=== PATIENT | female | born 1995 | race Caucasian/White ===

== ENCOUNTER 2019-10-22 18:48 | Inpatient (IN) | payer MEDICAID ==
[2019-10-22] MEDS ORDERED: Sodium Chloride 0.9% 10 ML Syringe FLUSH PRN (19:39)
[2019-10-22] MEDS ORDERED: fentaNYL 100 MCG/2 ML SDV IVPUSH PRN (19:39)
[2019-10-22] MEDS ORDERED: Ondansetron 4 MG/2 ML SDV IV PRN (19:39)
--- NOTE | 2019-10-22 19:59 | PCM.LDHP ---
L&D History of Present Illness - General Date of Service: 10/22/19 Admit Problem/Dx: Patient Status Order with Admit Dx/Problem 10/22/19 19:39 Patient Status [ADT] Routine Admission Diagnosis/Problem Admission Diagnosis/Problem H&P Review of Systems - Review of Systems: Review Of Systems: See Below General: Reports: No Symptoms HEENT: Reports: No Symptoms Pulmonary: Reports: No Symptoms Cardiovascular: Reports: No Symptoms Gastrointestinal: Reports: No Symptoms Genitourinary: Reports: No Symptoms Musculoskeletal: Reports: No Symptoms Skin: Reports: No Symptoms Psychiatric: Reports: No Symptoms Neurological: Reports: No Symptoms Hematologic/Lymphatic: Reports: No Symptoms Immunologic: Reports: No Symptoms L&D Exam - Exam Exam: See Below - OB Specific Contraction Intensity: Moderate Movement: Active Heart Tones: Present Heart Rate (FHR) Variability: Moderate (6-25 bmp) Presentation: Vertex - Milan Score Milan Score Cervix Position: Anterior Milan Score Consistency: Soft Milan Score Effacement: >80% Milan Score Dilation: 1-2 cm Milan Score 's Station: -1 ,0 Milan Score Total: 10 - Exam General: Alert, Oriented, Cooperative HEENT: PERRLA, Conjunctiva Clear, EACs Clear, EOMI, Hearing Intact, Mucosa Moist & Levasy, Nares Patent, Normal Nasal Septum, Posterior Pharynx Clear, TMs Clear Neck: Supple, Trachea Midline Lungs: Clear to Auscultation, Normal Respiratory Effort Cardiovascular: Regular Rate, Regular Rhythm GI/Abdominal Exam: Normal Bowel Sounds, Soft, Non-Tender, No Organomegaly, No Distention, No Abnormal Bruit, No Mass, Pelvis Stable Rectal Exam: Normal Exam, Normal Rectal Tone Genitourinary: Normal external exam, Normal bimanual exam, Normal speculum exam , Cervical dilitation Back Exam: Normal Inspection, Full Range of Motion Extremities: Normal Inspection, Normal Range of Motion, Non-Tender, No Pedal Edema, Normal Capillary Refill Skin: Warm, Dry, Intact Neurological: Cranial Nerves Intact, Reflexes Equal Bilateral Psychiatric: Alert, Normal Affect, Normal Mood - Patient Data Lab Results Last 24 hrs: Laboratory Results - last 24 hr 10/22/19 10/22/19 Range/Units 18:58 18:59 Membrane Rupture Positive H (NEGATIVE) Urine Opiates Screen Negative (NEGATIVE) Ur Oxycodone Screen Negative (NEGATIVE) Urine Methadone Screen Negative (NEGATIVE) Ur Propoxyphene Screen Negative (NEGATIVE) Ur Barbiturates Screen Negative (NEGATIVE) Ur Tricyclics Screen Negative (NEGATIVE) Ur Phencyclidine Scrn Negative (NEGATIVE) Ur Amphetamine Screen Negative (NEGATIVE) U Methamphetamines Scrn Negative (NEGATIVE) Urine MDMA Screen Negative (NEGATIVE) U Benzodiazepines Scrn Negative (NEGATIVE) U Cocaine Metab Screen Negative (NEGATIVE) U Marijuana (THC) Screen Negative (NEGATIVE) - Problem List (1) SNOMED Code(s): 65032330 ICD Code: Z34.90 - ENCNTR FOR SUPRVSN OF NORMAL , UNSP, UNSP TRIMESTER Status: Acute Current Visit: Yes Qualifiers: Weeks of gestation: 39 weeks Qualified Code(s): Z3A.39 - 39 weeks gestation of (2) SROM (spontaneous rupture of membranes) SNOMED Code(s): 672958762 ICD Code: AUA3424 - Status: Acute Current Visit: Yes (3) First stage of labor established SNOMED Code(s): 765169450 ICD Code: [id number] - Status: Acute Current Visit: Yes Problem List Initiated/Reviewed/Updated: Yes Orders Last 24hrs: Active Orders 24 hr Category Date Time Status Patient Status [ADT] Routine ADT 10/22/19 19:39 Active Ambulate [RC] PER UNIT ROUTINE Care 10/22/19 19:39 Active Communication Order [RC] ASDIRECTED Care 10/22/19 19:39 Active Communication Order [RC] Per Unit Routine Care 10/22/19 19:39 Active Communication Order [RC] Per Unit Routine Care 10/22/19 19:39 Active Communication Order [RC] Per Unit Routine Care 10/22/19 19:39 Active Communication Order [RC] Per Unit Routine Care 10/22/19 19:39 Active Heart Tones [RC] PER UNIT ROUTINE Care 10/22/19 19:39 Active Non Stress Test [RC] Click to Edit Care 10/22/19 19:39 Active May Shower [RC] ASDIRECTED Care 10/22/19 19:39 Active Nitrous Oxide Delivery [RC] ASDIRECTED Care 10/22/19 19:39 Active Notify Provider Vital Signs [RC] PRN Care 10/22/19 19:39 Active Notify Provider [RC] PRN Care 10/22/19 19:39 Active OB Check [OM.PC] Click To Edit Care 10/22/19 18:58 Ordered Oxygen Therapy [RC] ASDIRECTED Care 10/22/19 19:39 Active Pulse Oximetry [RC] ASDIRECTED Care 10/22/19 19:39 Active Up ad Charline [RC] ASDIRECTED Care 10/22/19 19:39 Active VTE/DVT Education [RC] Click to Edit Care 10/22/19 19:46 Active Verify Patient Consent Obtain [RC] ASDIRECTED Care 10/22/19 19:39 Active Vital Signs [RC] PER UNIT ROUTINE Care 10/22/19 19:39 Active Vital Signs [RC] PER UNIT ROUTINE Care 10/22/19 19:39 Active Regular Diet [DIET] Diet 10/22/19 Dinner Active CBC WITH AUTO DIFF [HEME] Routine Lab 10/22/19 19:39 Ordered UA W/MICROSCOPIC [URIN] Routine Lab 10/22/19 18:59 Ordered Ondansetron [Zofran] Med 10/22/19 19:39 Ordered 4 mg IV Q4H PRN Sodium Chloride 0.9% [Saline Flush] Med 10/22/19 19:39 Ordered 10 ml FLUSH ASDIRECTED PRN fentaNYL [Sublimaze] Med 10/22/19 19:39 Ordered 100 mcg IVPUSH Q1H PRN DVT/VTE Prophylaxis Reflex [OM.PC] Routine Oth 10/22/19 19:39 Ordered Medication Discontinuation Instructions [OM.PC] Routine Oth 10/22/19 19:39 Ordered Saline Lock Insert [OM.PC] Routine Oth 10/22/19 19:39 Ordered Resuscitation Status Routine Resus Stat 10/22/19 19:39 Ordered Medication Orders Fentanyl (Sublimaze) 100 mcg IVPUSH Q1H PRN PRN Reason: Pain (moderate 4-6) Ondansetron HCl (Zofran) 4 mg IV Q4H PRN PRN Reason: Nausea/Vomiting Sodium Chloride (Saline Flush) 10 ml FLUSH ASDIRECTED PRN PRN Reason: Keep Vein Open Assessment/Plan Comment:: 10/22/2019 24 yo here at 39 6/7 gestational weeks with SROM at home slow leak at noon then big gush at 1800 so they came in to hospital SVE-2/80/-1 Amnisure positive Labs- O positive, Hep B neg, Hep C neg, HIV neg, RPR nonreactive, GBS negative, Rubella nonimmune Plan- Monitor for labor Monitor for FHTs Pain management per patient request Plan and anticipate a vaginal delivery
[2019-10-22] MEDS ORDERED: Penicillin G Potassium 5 MILLUNITS in Sodium Chloride 0.9% 50 ML IV ONE (21:07)
[2019-10-22] MEDS ORDERED: Sodium Chloride 0.9% 100 ML ONE (21:10)
[2019-10-22] MEDS ORDERED: Misoprostol 50 MCG (1/2 of 100 MCG) Tab PO ONE (21:18)
[2019-10-22] MEDS: Lactated Ringers 1,000 ML IV SCH (21:22)
--- NOTE | 2019-10-23 00:18 | PCM.PNLD ---
Labor Progress Note - VS & Meds Vital Signs: Last Vital Signs Temp 36.9 C 10/22/19 21:27 Pulse 108 H 10/22/19 21:27 Resp 18 10/22/19 21:27 BP 111/60 10/22/19 21:27 Pulse Ox 97 10/22/19 21:27 Active Medications: Current Medications Fentanyl (Sublimaze) 100 mcg IVPUSH Q1H PRN PRN Reason: Pain (moderate 4-6) Lactated Ringer's (Ringers, Lactated) 1,000 mls @ 125 mls/hr IV ASDIRECTED [facility]IA[facility] Last Admin: 10/22/19 21:22 Dose: 125 mls/hr Penicillin G Potassium 2.5 (millunits/ Sodium Chloride) 50 mls @ 100 mls/hr IV Q4H [facility] Ondansetron HCl (Zofran) 4 mg IV Q4H PRN PRN Reason: Nausea/Vomiting Sodium Chloride (Saline Flush) 10 ml FLUSH ASDIRECTED PRN PRN Reason: Keep Vein Open Discontinued Medications Penicillin G Potassium 5 (millunits/ Sodium Chloride) 50 mls @ 100 mls/hr IV ONETIME ONE Stop: 10/22/19 21:36 Last Admin: 10/22/19 21:21 Dose: 100 mls/hr Sodium Chloride (Normal Saline) Confirm Administered Dose 100 mls @ as directed .ROUTE .STK-MED ONE Stop: 10/22/19 21:11 Last Admin: 10/22/19 21:23 Dose: Not Given Misoprostol (Cytotec) 50 mcg PO ONETIME ONE Stop: 10/22/19 21:19 Last Admin: 10/22/19 21:38 Dose: 50 mcg - Uterine Contractions Uterine Monitoring Mode: None in Use Contraction Frequency (min): 2-6 Contraction Duration (sec): 30-60 Contraction Intensity: Moderate Uterine Resting Tone: Soft - Monitoring Monitor Mode: External Ultrasound Heart Rate (FHR) Variability: Moderate (6-25 bmp) Accelerations: Present, 15x15 Decelerations: None Strip Review: Category I - Vaginal Exam Dilation (cm): 2-3 Effacement (Percent): 80 Sterile Vaginal Exam Performed By: Miracle Najera - Labor Progress (Free Text) Labor Progress: 10/23/2019 Patient is tolerating labor well with position changes and tub. SVE with minimal change but contractions more regular FHTs category one PCN G IV going for elevated WBC Plan- Continue to monitor for labor Continue to monitor FHTs Pain management per patient request Continue PCN G IV for elevated WBC Plan and anticipate a vaginal
[2019-10-23] MEDS ORDERED: Sodium Chloride 0.9% 10 ML Syringe FLUSH PRN (00:36)
[2019-10-23] MEDS ORDERED: diphenhydrAMINE 50 MG/ML SDV IVPUSH PRN ×2 (00:36)
[2019-10-23] MEDS ORDERED: Lactated Ringers 1,000 ML IV ONE (00:36)
[2019-10-23] MEDS ORDERED: ePHEDrine 50 MG/ML SDV IVPUSH PRN ×2 (00:36)
[2019-10-23] MEDS ORDERED: Naloxone 0.4 MG/ML SDV IVPUSH PRN (00:36)
[2019-10-23] MEDS ORDERED: Ropivacaine 200 MG in Premix Bag 1 BAG EPIDUR SCH (00:45)
[2019-10-23] MEDS: Penicillin G Potassium 2.5 MILLUNITS in Sodium Chloride 0.9% 50 ML IV SCH ×2 (01:00→04:58)
[2019-10-23] MEDS ORDERED: fentaNYL 100 MCG/2 ML SDV ONE (01:14)
[2019-10-23] MEDS ORDERED: Ropivacaine 100 ML ONE (01:14)
[2019-10-23] MEDS ORDERED: Terbutaline 1 MG/ML SDV SUBCUT ONE (02:06)
--- NOTE | 2019-10-23 02:26 | PROC ---
DATE OF PROCEDURE: 10/23/2019 SURGEON: Howard Pickett CRNA TIME: Approximately 2:15 a.m. This 24-year-old is in labor. She was dilated to approximately 3 and a request has been made that she have an epidural. I discussed the risks and benefits of this with her. She is understanding of these and is willing to proceed. She is placed in a sitting position. Her back was prepped with Betadine x3. A 2 mL skin wheal of 1% Xylocaine was injected at approximately L3-L4 and another 2 to 3 mL into the deeper tissue. A 17-gauge Tuohy needle was placed into the epidural space at this level using a loss of resistance technique. I was unable to aspirate blood, fluid, or air from the epidural needle and proceeded to give her a test dose of 1.5% Xylocaine with epinephrine, a 5 mL and 2 mL of 100 mcg of preservative-free fentanyl. An epidural catheter was then placed into the epidural space 2- 3 cm, and the needle was removed over the catheter. The catheter was brought up over her right shoulder and taped securely in place. She was then given a 10 mL bolus of 0.2% ropivacaine and placed 0.2% ropivacaine infusion at 12 mL/hour. This was confirmed with the RN in attendance. The patient suffered no paresthesia. Currently, her vital signs are stable. Anesthesia will be called if there is further assistance from our department needed. NAME OF PROCEDURE: Labor epidural. Howard Pickett CRNA /[id number]
[2019-10-23] MEDS: Lactated Ringers 1,000 ML IV SCH (03:16)
[2019-10-23] MEDS ORDERED: Acetaminophen 325 MG Tab PO PRN (05:36)
--- NOTE | 2019-10-23 06:43 | PCM.PNLD ---
Labor Progress Note - VS & Meds Vital Signs: Last Vital Signs Temp 37.7 C 10/23/19 05:30 Pulse 96 10/23/19 05:40 Resp 18 10/23/19 05:40 BP 115/62 10/23/19 05:40 Pulse Ox 99 10/23/19 05:40 Active Medications: Current Medications Acetaminophen (Tylenol) 650 mg PO Q4H PRN PRN Reason: Fever Last Admin: 10/23/19 05:46 Dose: 650 mg Diphenhydramine HCl (Benadryl) 25 mg IVPUSH Q6H PRN PRN Reason: Itching Diphenhydramine HCl (Benadryl) 50 mg IVPUSH Q6H PRN PRN Reason: Itching Ephedrine Sulfate (Ephedrine Sulfate) 10 mg IVPUSH ASDIRECTED PRN PRN Reason: Hypotension Ephedrine Sulfate (Ephedrine Sulfate) 10 mg IVPUSH ASDIRECTED PRN PRN Reason: Hypotension Fentanyl (Sublimaze) 100 mcg IVPUSH Q1H PRN PRN Reason: Pain (moderate 4-6) Lactated Ringer's (Ringers, Lactated) 1,000 mls @ 125 mls/hr IV ASDIRECTED [facility] Last Admin: 10/23/19 03:16 Dose: 125 mls/hr Penicillin G Potassium 2.5 (millunits/ Sodium Chloride) 50 mls @ 100 mls/hr IV Q4H [facility] Last Admin: 10/23/19 04:58 Dose: 100 mls/hr Ropivacaine 200 mg/ Premix 100 mls @ 0 mls/hr EPIDUR ASDIRECTED [facility] Oxytocin/Sodium Chloride (Pitocin In Ns 20 Units/1,000 Ml) 20 unit in 1,000 mls @ 6 mls/hr IV TITRATE [facility]; Protocol Last Admin: 10/23/19 05:48 Dose: 2 munits/min, 6 mls/hr Naloxone HCl (Narcan) 0.1 mg IVPUSH ASDIRECTED PRN PRN Reason: Oversedation Ondansetron HCl (Zofran) 4 mg IV Q4H PRN PRN Reason: Nausea/Vomiting Sodium Chloride (Saline Flush) 10 ml FLUSH ASDIRECTED PRN PRN Reason: Keep Vein Open Sodium Chloride (Saline Flush) 10 ml FLUSH ASDIRECTED PRN PRN Reason: Keep Vein Open Discontinued Medications Fentanyl (Sublimaze) Confirm Administered Dose 100 mcg .ROUTE .STK-MED ONE Stop: 10/23/19 01:15 Penicillin G Potassium 5 (millunits/ Sodium Chloride) 50 mls @ 100 mls/hr IV ONETIME ONE Stop: 10/22/19 21:36 Last Admin: 10/22/19 21:21 Dose: 100 mls/hr Sodium Chloride (Normal Saline) Confirm Administered Dose 100 mls @ as directed .ROUTE .STK-MED ONE Stop: 10/22/19 21:11 Last Admin: 10/22/19 21:23 Dose: Not Given Lactated Ringer's (Ringers, Lactated) 1,000 mls @ 999 mls/hr IV .BOLUS ONE Stop: 10/23/19 01:36 Last Admin: 10/23/19 01:01 Dose: 999 mls/hr Ropivacaine (Naropin 0.2%) Confirm Administered Dose 100 mls @ as directed .ROUTE .STK-MED ONE Stop: 10/23/19 01:15 Misoprostol (Cytotec) 50 mcg PO ONETIME ONE Stop: 10/22/19 21:19 Last Admin: 10/22/19 21:38 Dose: 50 mcg Terbutaline Sulfate (Brethine) 0.25 mg SUBCUT ONETIME ONE Stop: 10/23/19 02:07 Last Admin: 10/23/19 02:25 Dose: 0.25 mg - Uterine Contractions Uterine Monitoring Mode: External [place] Contraction Frequency (min): 1-2.5 Contraction Duration (sec): 30-60 Contraction Intensity: Moderate to Strong Uterine Resting Tone: Soft - Monitoring Monitor Mode: External Ultrasound Heart Rate (FHR) Variability: Moderate (6-25 bmp) Accelerations: Present, 15x15 Decelerations: None Strip Review: Category I - Vaginal Exam Dilation (cm): 9.5 Effacement (Percent): 100 Station: 0 Sterile Vaginal Exam Performed By: Miracle Najera - Labor Progress (Free Text) Labor Progress: 10/23/2019 Patient progressing nicely SVE-9.5/100/-1 FHTs occasional tachycardia with occasional variables Patient comfortable with epidural Plan- Continue to monitor labor Continue to monitor FHTs Continue PCN G for prolonged rupture of membranes Plan and anticipate a vaginal delivery
--- NOTE | 2019-10-23 06:47 | PCM.PNLD ---
Labor Progress Note - VS & Meds Vital Signs: Last Vital Signs Temp 37.2 C 10/23/19 06:41 Pulse 96 10/23/19 05:40 Resp 18 10/23/19 05:40 BP 115/62 10/23/19 05:40 Pulse Ox 99 10/23/19 05:40 Active Medications: Current Medications Acetaminophen (Tylenol) 650 mg PO Q4H PRN PRN Reason: Fever Last Admin: 10/23/19 05:46 Dose: 650 mg Diphenhydramine HCl (Benadryl) 25 mg IVPUSH Q6H PRN PRN Reason: Itching Diphenhydramine HCl (Benadryl) 50 mg IVPUSH Q6H PRN PRN Reason: Itching Ephedrine Sulfate (Ephedrine Sulfate) 10 mg IVPUSH ASDIRECTED PRN PRN Reason: Hypotension Ephedrine Sulfate (Ephedrine Sulfate) 10 mg IVPUSH ASDIRECTED PRN PRN Reason: Hypotension Fentanyl (Sublimaze) 100 mcg IVPUSH Q1H PRN PRN Reason: Pain (moderate 4-6) Lactated Ringer's (Ringers, Lactated) 1,000 mls @ 125 mls/hr IV ASDIRECTED [facility] Last Admin: 10/23/19 03:16 Dose: 125 mls/hr Penicillin G Potassium 2.5 (millunits/ Sodium Chloride) 50 mls @ 100 mls/hr IV Q4H [facility] Last Admin: 10/23/19 04:58 Dose: 100 mls/hr Ropivacaine 200 mg/ Premix 100 mls @ 0 mls/hr EPIDUR ASDIRECTED [facility] Oxytocin/Sodium Chloride (Pitocin In Ns 20 Units/1,000 Ml) 20 unit in 1,000 mls @ 6 mls/hr IV TITRATE [facility]; Protocol Last Admin: 10/23/19 05:48 Dose: 2 munits/min, 6 mls/hr Naloxone HCl (Narcan) 0.1 mg IVPUSH ASDIRECTED PRN PRN Reason: Oversedation Ondansetron HCl (Zofran) 4 mg IV Q4H PRN PRN Reason: Nausea/Vomiting Sodium Chloride (Saline Flush) 10 ml FLUSH ASDIRECTED PRN PRN Reason: Keep Vein Open Sodium Chloride (Saline Flush) 10 ml FLUSH ASDIRECTED PRN PRN Reason: Keep Vein Open Discontinued Medications Fentanyl (Sublimaze) Confirm Administered Dose 100 mcg .ROUTE .STK-MED ONE Stop: 10/23/19 01:15 Penicillin G Potassium 5 (millunits/ Sodium Chloride) 50 mls @ 100 mls/hr IV ONETIME ONE Stop: 10/22/19 21:36 Last Admin: 10/22/19 21:21 Dose: 100 mls/hr Sodium Chloride (Normal Saline) Confirm Administered Dose 100 mls @ as directed .ROUTE .STK-MED ONE Stop: 10/22/19 21:11 Last Admin: 10/22/19 21:23 Dose: Not Given Lactated Ringer's (Ringers, Lactated) 1,000 mls @ 999 mls/hr IV .BOLUS ONE Stop: 10/23/19 01:36 Last Admin: 10/23/19 01:01 Dose: 999 mls/hr Ropivacaine (Naropin 0.2%) Confirm Administered Dose 100 mls @ as directed .ROUTE .STK-MED ONE Stop: 10/23/19 01:15 Misoprostol (Cytotec) 50 mcg PO ONETIME ONE Stop: 10/22/19 21:19 Last Admin: 10/22/19 21:38 Dose: 50 mcg Terbutaline Sulfate (Brethine) 0.25 mg SUBCUT ONETIME ONE Stop: 10/23/19 02:07 Last Admin: 10/23/19 02:25 Dose: 0.25 mg - Uterine Contractions Uterine Monitoring Mode: External [place] Contraction Frequency (min): 1-2.5 Contraction Duration (sec): 30-60 Contraction Intensity: Moderate to Strong Uterine Resting Tone: Soft - Monitoring Monitor Mode: External Ultrasound Heart Rate (FHR) Variability: Moderate (6-25 bmp) Accelerations: Present, 15x15 Decelerations: None Strip Review: Category I - Vaginal Exam Dilation (cm): 5-6 Effacement (Percent): 100 Station: -1 Sterile Vaginal Exam Performed By: Miracle Najera - Labor Progress (Free Text) Labor Progress: 10/23/2019 Patient slowly progressing SVE-5-6/100/-1 FHTs occasoinally category two Temp now 99.8 Contractions irregular and coupling Patient comfortable with epidural Plan- Continue to monitor labor Continue to monitor FHTs Continue PCN G for prolonged rupture Continue epidural for pain management Tyelnol now for temperature Start Pitocin to try to get a better pattern Plan and anticipate a vaginal delivery
[2019-10-23] MEDS ORDERED: Misoprostol 200 MCG Tab ONE (07:17)
[2019-10-23] MEDS ORDERED: Carboprost Tromethamine 250 MCG/1 ML Amp ONE (07:18)
[2019-10-23] MEDS ORDERED: Methylergonovine 0.2 MG/1 ML Amp ONE (07:18)
[2019-10-23] MEDS ORDERED: Lanolin 100% Cream 40 GM Tube TOP ONE ×2 (07:40→12:00)
[2019-10-23] MEDS ORDERED: Acetaminophen 325 MG Tab, 50 Tab Bulk Bottle PO PRN (07:40)
[2019-10-23] MEDS ORDERED: Ibuprofen 200 MG Tab, 24 Tab Bulk Bottle PO PRN (07:40)
[2019-10-23] MEDS ORDERED: Witch Hazel Medicated Pads 100/Jar TOP ONE ×2 (07:40→12:00)
[2019-10-23] MEDS ORDERED: Benzocaine 20% Top Spray 56 GM Bottle TOP ONE ×2 (07:40→12:00)
--- NOTE | 2019-10-23 07:57 | PCM.DEL ---
L & D Note - General Info Date of Service: 10/23/19 Mother's Due Date: 10/23/19 - Delivery Note Labor: Augmented by Oxytocin Delivery Outcome: Livebirth Infant Delivery Method: Spontaneous Vaginal Delivery-Single Delivery Mode: Spontaneous Presentation: Vertex Nuchal Cord: None Anesthesia Type: Epidural Episiotomy Type: None Laceration: Labial (small not bleeding not repaired) Placenta: Intact, Spontaneous Cord: 3 Vessels Estimated Blood Loss: 400 Resuscitation Needed: No [place]: Bulb Syringe, Stimulated, Warmed, [place] Used Provider: Miracle Najera Score 1 min: 7 Score 5 min: 8 Second Stage Interventions: Reports: Second Nurse Assessed Progress of Descent, Second Nurse Reviewed Contraction Pattern, Second Nurse Reviewed Heart Tones, Encouragement Given, Laboring Down, Pushing Effectively, Pushing, McRobert's Position, Pushing, Stirrups/Leg Supports Delivery Comments (Free Text/Narrative):: 10/23/2019 24 yo delivered a viable female at 0716 on 10/23/19 in MARIA ESTHER position over an intact perineum. was then placed on prewarmed blanket on mother abdomen, was slower in transitioning so after 30 seconds of delayed cord clamping was brought to warmer for further assessment. Infant during movement began to cry and transition. Mother noted to have then odorous fluid, with some bleeding, placenta then came spontaneous and intact, three vessel cord , EBL-400ml. APGARS-7/8, infant febrile at 100.4. Weight and length not done at time of report. now skin to skin with mother and both are stable at this time. Stages of labor [id number] - General Info Date of Service: 10/23/19 Functional Status: Reports: Pain Controlled - Review of Systems General: Reports: No Symptoms HEENT: Reports: No Symptoms Pulmonary: Reports: No Symptoms Cardiovascular: Reports: No Symptoms Gastrointestinal: Reports: No Symptoms Genitourinary: Reports: No Symptoms Musculoskeletal: Reports: No Symptoms Skin: Reports: No Symptoms Neurological: Reports: No Symptoms Psychiatric: Reports: No Symptoms - Patient Data Vitals - Most Recent: Last Vital Signs Temp 37.2 C 10/23/19 06:41 Pulse 96 10/23/19 05:40 Resp 18 10/23/19 05:40 BP 115/62 10/23/19 05:40 Pulse Ox 99 10/23/19 05:40 Weight - Most Recent: 71.668 kg I&O - Last 24 Hours: Intake & Output 10/22/19 10/23/19 10/23/19 22:59 06:59 14:59 Intake Total 100 2300 Output Total 775 Balance 100 1525 Lab Results Last 24 Hours: Laboratory Results - last 24 hr 10/22/19 10/22/19 10/22/19 Range/Units 18:58 18:59 20:02 WBC 21.6 H (4.5-11.0) K/uL RBC 4.17 (3.30-5.50) M/uL Hgb 11.4 L (12.0-15.0) g/dL Hct 35.5 L (36.0-48.0) % MCV 85 (80-98) fL MCH 27 (27-31) pg MCHC 32 (32-36) % Plt Count 238 (150-400) K/uL Neut % (Auto) 79 H (36-66) % Lymph % (Auto) 10 L (24-44) % [place] % (Auto) 10 H (2-6) % Eos % (Auto) 0 L (2-4) % Baso % (Auto) 0 (0-1) % Urine Color (YELLOW) Urine Appearance (CLEAR) Urine pH (5.0-8.0) Ur Specific [place] (1.008-1.030) Urine Protein (NEGATIVE) mg/dL Urine Glucose (UA) (NEGATIVE) mg/dL Urine Ketones (NEGATIVE) mg/dL Urine Occult Blood (NEGATIVE) Urine Nitrite (NEGATIVE) Urine Bilirubin (NEGATIVE) Urine Urobilinogen (0.2-1.0) EU/dL Ur Leukocyte Esterase (NEGATIVE) Urine RBC (0-5) Urine WBC (0-5) Ur Epithelial Cells Amorphous Sediment Urine Bacteria Urine Mucus Membrane Rupture Positive H (NEGATIVE) Urine Opiates Screen Negative (NEGATIVE) Ur Oxycodone Screen Negative (NEGATIVE) Urine Methadone Screen Negative (NEGATIVE) Ur Propoxyphene Screen Negative (NEGATIVE) Ur Barbiturates Screen Negative (NEGATIVE) Ur Tricyclics Screen Negative (NEGATIVE) Ur Phencyclidine Scrn Negative (NEGATIVE) Ur Amphetamine Screen Negative (NEGATIVE) U Methamphetamines Scrn Negative (NEGATIVE) Urine MDMA Screen Negative (NEGATIVE) U Benzodiazepines Scrn Negative (NEGATIVE) U Cocaine Metab Screen Negative (NEGATIVE) U Marijuana (THC) Screen Negative (NEGATIVE) 10/23/19 Range/Units 00:20 WBC (4.5-11.0) K/uL RBC (3.30-5.50) M/uL Hgb (12.0-15.0) g/dL Hct (36.0-48.0) % MCV (80-98) fL MCH (27-31) pg MCHC (32-36) % Plt Count (150-400) K/uL Neut % (Auto) (36-66) % Lymph % (Auto) (24-44) % [place] % (Auto) (2-6) % Eos % (Auto) (2-4) % Baso % (Auto) (0-1) % Urine Color Yellow (YELLOW) Urine Appearance Slightly cloudy A (CLEAR) Urine pH 7.0 (5.0-8.0) Ur Specific [place] 1.010 (1.008-1.030) Urine Protein Negative (NEGATIVE) mg/dL Urine Glucose (UA) Negative (NEGATIVE) mg/dL Urine Ketones Negative (NEGATIVE) mg/dL Urine Occult Blood Small H (NEGATIVE) Urine Nitrite Negative (NEGATIVE) Urine Bilirubin Negative (NEGATIVE) Urine Urobilinogen 0.2 (0.2-1.0) EU/dL Ur Leukocyte Esterase Small H (NEGATIVE) Urine RBC 0-5 (0-5) Urine WBC 0-5 (0-5) Ur Epithelial Cells Few Amorphous Sediment Few Urine Bacteria Few Urine Mucus Not seen Membrane Rupture (NEGATIVE) Urine Opiates Screen (NEGATIVE) Ur Oxycodone Screen (NEGATIVE) Urine Methadone Screen (NEGATIVE) Ur Propoxyphene Screen (NEGATIVE) Ur Barbiturates Screen (NEGATIVE) Ur Tricyclics Screen (NEGATIVE) Ur Phencyclidine Scrn (NEGATIVE) Ur Amphetamine Screen (NEGATIVE) U Methamphetamines Scrn (NEGATIVE) Urine MDMA Screen (NEGATIVE) U Benzodiazepines Scrn (NEGATIVE) U Cocaine Metab Screen (NEGATIVE) U Marijuana (THC) Screen (NEGATIVE) Med Orders - Current: Current Medications Acetaminophen (Tylenol) 650 mg PO Q4H PRN PRN Reason: Fever Last Admin: 10/23/19 05:46 Dose: 650 mg Acetaminophen (Tylenol Bulk Bottle) 0 mg PO Q4H PRN PRN Reason: Pain Benzocaine (Uqho-K-Ttvanbd 20% [place]) 0 gm TOP ONETIME ONE Stop: 10/23/19 07:41 Diphenhydramine HCl (Benadryl) 25 mg IVPUSH Q6H PRN PRN Reason: Itching Diphenhydramine HCl (Benadryl) 50 mg IVPUSH Q6H PRN PRN Reason: Itching Emollient Ointment (Lansinoh Hpa) 1 gm TOP ONETIME ONE Stop: 10/23/19 07:41 Ephedrine Sulfate (Ephedrine Sulfate) 10 mg IVPUSH ASDIRECTED PRN PRN Reason: Hypotension Fentanyl (Sublimaze) 100 mcg IVPUSH Q1H PRN PRN Reason: Pain (moderate 4-6) Lactated Ringer's (Ringers, Lactated) 1,000 mls @ 125 mls/hr IV ASDIRECTED [facility] Last Admin: 10/23/19 03:16 Dose: 125 mls/hr Penicillin G Potassium 2.5 (millunits/ Sodium Chloride) 50 mls @ 100 mls/hr IV Q4H [facility] Last Admin: 10/23/19 04:58 Dose: 100 mls/hr Ropivacaine 200 mg/ Premix 100 mls @ 0 mls/hr EPIDUR ASDIRECTED [facility] Oxytocin/Sodium Chloride (Pitocin In Ns 20 Units/1,000 Ml) 20 unit in 1,000 mls @ 6 mls/hr IV TITRATE [facility]; Protocol Last Admin: 10/23/19 05:48 Dose: 2 munits/min, 6 mls/hr Ibuprofen (Motrin Bulk Bottle) 600 mg PO Q6H PRN PRN Reason: Pain Naloxone HCl (Narcan) 0.1 mg IVPUSH ASDIRECTED PRN PRN Reason: Oversedation Ondansetron HCl (Zofran) 4 mg IV Q4H PRN PRN Reason: Nausea/Vomiting Sodium Chloride (Saline Flush) 10 ml FLUSH ASDIRECTED PRN PRN Reason: Keep Vein Open [place] (Tucks) 1 pad TOP ONETIME ONE Stop: 10/23/19 07:41 Discontinued Medications Carboprost Tromethamine (Hemabate Ds) Confirm Administered Dose 250 mcg .ROUTE .STK-MED ONE Stop: 10/23/19 07:19 Ephedrine Sulfate (Ephedrine Sulfate) 10 mg IVPUSH ASDIRECTED PRN PRN Reason: Hypotension Fentanyl (Sublimaze) Confirm Administered Dose 100 mcg .ROUTE .STK-MED ONE Stop: 10/23/19 01:15 Penicillin G Potassium 5 (millunits/ Sodium Chloride) 50 mls @ 100 mls/hr IV ONETIME ONE Stop: 10/22/19 21:36 Last Admin: 10/22/19 21:21 Dose: 100 mls/hr Sodium Chloride (Normal Saline) Confirm Administered Dose 100 mls @ as directed .ROUTE .STK-MED ONE Stop: 10/22/19 21:11 Last Admin: 10/22/19 21:23 Dose: Not Given Lactated Ringer's (Ringers, Lactated) 1,000 mls @ 999 mls/hr IV .BOLUS ONE Stop: 10/23/19 01:36 Last Admin: 10/23/19 01:01 Dose: 999 mls/hr Ropivacaine (Naropin 0.2%) Confirm Administered Dose 100 mls @ as directed .ROUTE .STK-MED ONE Stop: 10/23/19 01:15 Methylergonovine Maleate (Methergine) Confirm Administered Dose 0.2 mg .ROUTE .STK-MED ONE Stop: 10/23/19 07:19 Misoprostol (Cytotec) 50 mcg PO ONETIME ONE Stop: 10/22/19 21:19 Last Admin: 10/22/19 21:38 Dose: 50 mcg Misoprostol (Cytotec) Confirm Administered Dose 800 mcg .ROUTE .STK-MED ONE Stop: 10/23/19 07:18 Sodium Chloride (Saline Flush) 10 ml FLUSH ASDIRECTED PRN PRN Reason: Keep Vein Open Terbutaline Sulfate (Brethine) 0.25 mg SUBCUT ONETIME ONE Stop: 10/23/19 02:07 Last Admin: 10/23/19 02:25 Dose: 0.25 mg - Exam General: Alert, Oriented, Cooperative HEENT: Pupils Equal, Pupils Reactive, EOMI, Mucous Membr. Moist/[place] Neck: Supple Lungs: Clear to Auscultation, Normal Respiratory Effort Cardiovascular: Regular Rate, Regular Rhythm GI/Abdominal Exam: Normal Bowel Sounds, Soft, Non-Tender, No Organomegaly, No Distention, No Abnormal Bruit, No Mass, Pelvis Stable (Female) Exam: Normal External Exam, Normal Speculum Exam, Normal Bimanual Exam, Enlarged Uterus, Vaginal Bleeding Back Exam: Normal Inspection, Full Range of Motion Extremities: Normal Inspection, Normal Range of Motion, Non-Tender, No Pedal Edema, Normal Capillary Refill Skin: Warm, Dry, Intact Neurological: No New Focal Deficit Psy/Mental Status: Alert, Normal Affect, Normal Mood - Problem List & Annotations (1) SNOMED Code(s): 76481491 Code(s): Z34.90 - ENCNTR FOR SUPRVSN OF NORMAL , UNSP, UNSP TRIMESTER Status: Acute Current Visit: Yes Qualifiers: Weeks of gestation: 39 weeks Qualified Code(s): Z3A.39 - 39 weeks gestation of (2) SROM (spontaneous rupture of membranes) SNOMED Code(s): 454267322 Code(s): RYG6107 - Status: Acute Current Visit: Yes (3) First stage of labor established SNOMED Code(s): 552251753 Code(s): VUL7200 - Status: Acute Current Visit: Yes - Problem List Review Problem List Initiated/Reviewed/Updated: Yes - My Orders Last 24 Hours: My Active Orders 10/22/19 18:58 OB Check [OM.PC] Click To Edit 10/22/19 19:39 Patient Status [ADT] Routine Ambulate [RC] PER UNIT ROUTINE Communication Order [RC] ASDIRECTED Communication Order [RC] Per Unit Routine Communication Order [RC] Per Unit Routine Communication Order [RC] Per Unit Routine Communication Order [RC] Per Unit Routine May Shower [RC] ASDIRECTED Nitrous Oxide Delivery [RC] ASDIRECTED Notify Provider Vital Signs [RC] PRN Notify Provider [RC] PRN Up ad Charline [RC] ASDIRECTED Vital Signs [RC] PER UNIT ROUTINE Ondansetron [Zofran] 4 mg IV Q4H PRN Sodium Chloride 0.9% [Saline Flush] 10 ml FLUSH ASDIRECTED PRN fentaNYL [Sublimaze] 100 mcg IVPUSH Q1H PRN DVT/VTE Prophylaxis Reflex [OM.PC] Routine Medication Discontinuation Instructions [OM.PC] Routine Saline Lock Insert [OM.PC] Routine Resuscitation Status Routine 10/22/19 19:46 VTE/DVT Education [RC] Click to Edit 10/22/19 21:08 Dietary Supplements [RC] BIDMEALS 10/22/19 21:15 Lactated Ringers [Ringers, Lactated] 1,000 ml IV ASDIRECTED 10/22/19 Dinner Regular Diet [DIET] 10/23/19 00:36 PCEA Epidural [RC] ASDIRECTED Peripheral IV Care [RC] . DIRECTED Pulse Oximetry [RC] ASDIRECTED Urinary Catheter Assessment [RC] ASDIRECTED Naloxone [Narcan] 0.1 mg IVPUSH ASDIRECTED PRN diphenhydrAMINE [Benadryl] 25 mg IVPUSH Q6H PRN diphenhydrAMINE [Benadryl] 50 mg IVPUSH Q6H PRN ePHEDrine [ePHEDrine sulfate] 10 mg IVPUSH ASDIRECTED PRN Epidural Catheter Management [OM.PC] Routine Epidural Catheter Management [OM.PC] Urgent Peripheral IV Insertion Pediatric [OM.PC] Routine 10/23/19 00:45 Insert Urinary Catheter [OM.PC] ASDIRECTED Ropivacaine [Naropin 0.2%] 200 mg Premix Bag 1 bag EPIDUR ASDIRECTED 10/23/19 01:00 Penicillin G Potassium [Pfizerpen] 2.5 millunits Sodium Chloride 0.9% [Normal Saline] 50 ml IV Q4H 10/23/19 05:36 Acetaminophen [Tylenol] 650 mg PO Q4H PRN 10/23/19 05:45 Oxytocin/Normal Saline [Pitocin in NS 20 Units/1,000 ML] 20 unit in 1,000 ml IV TITRATE 10/23/19 07:40 Patient Status [ADT] Routine Vital Signs [RC] PFP Acetaminophen [Tylenol Bulk Bottle] See Dose Instructions PO Q4H PRN Benzocaine [Nyzg-Q-Uzbbwrl 20% [place]] See Dose Instructions TOP ONETIME ONE Ibuprofen [Motrin Bulk Bottle] 600 mg PO Q6H PRN Lanolin [Lansinoh HPA] 1 gm TOP ONETIME ONE [place] [Tucks] 1 pad TOP ONETIME ONE Assess Lochia [WOMSER] Per Unit Routine Assess Uterine Involution [WOMSER] Per Unit Routine 10/23/19 07:42 Perineal Care [OM.PC] Per Unit Routine Sitz Bath [OM.PC] Per Unit Routine 10/24/19 06:00 CBC WITH AUTO DIFF [HEME] Routine - Assessment Assessment:: 10/23/2019 24 yo G1 now P1 delivered female infant Chorioamnionitis suspected Elevated WBC Fever on delivery - Plan Plan:: 10/22/2019 24 yo here at 39 6/7 gestational weeks with SROM at home slow leak at noon then big gush at 1800 so they came in to hospital [facility] [place]-/-1 Amnisure positive Labs- O positive, Hep B neg, Hep C neg, HIV neg, RPR nonreactive, GBS negative, Rubella nonimmune Plan- Monitor for labor Monitor for FHTs Pain management per patient request Plan and anticipate a vaginal delivery 10/23/2019 Routine cares Encourage and support
[2019-10-23] MEDS ORDERED: cefTRIAXone 2 GM in Sodium Chloride 0.9% 50 ML IV ONE (09:00)
[2019-10-23] MEDS ORDERED: Lanolin 100% Cream 40 GM Tube TOP PRN (20:25)
--- NOTE | 2019-10-24 11:45 | PCM.PNPP ---
- General Info Date of Service: 10/24/19 Functional Status: Reports: Pain Controlled - Review of Systems General: Reports: No Symptoms HEENT: Reports: No Symptoms Pulmonary: Reports: No Symptoms Cardiovascular: Reports: No Symptoms Gastrointestinal: Reports: No Symptoms Genitourinary: Reports: No Symptoms Musculoskeletal: Reports: No Symptoms Skin: Reports: No Symptoms Neurological: Reports: No Symptoms Psychiatric: Reports: No Symptoms - General Info Date of Service: 10/24/19 - Patient Data Vital Signs - Most Recent: Last Vital Signs Temp 36.3 C 10/24/19 07:45 Pulse 89 10/24/19 07:45 Resp 16 10/24/19 07:45 BP 91/47 L 10/24/19 07:45 Pulse Ox 96 10/24/19 07:45 Weight - Most Recent: 71.668 kg I&O - Last 24 Hours: Intake & Output 10/23/19 10/24/19 10/24/19 22:59 06:59 14:59 Intake Total 500 1000 Balance 500 1000 Lab Results - Last 24 Hours: Laboratory Results - last 24 hr 10/24/19 Range/Units 05:30 WBC 28.2 H (4.5-11.0) K/uL RBC 3.52 (3.30-5.50) M/uL Hgb 9.5 L (12.0-15.0) g/dL Hct 30.4 L (36.0-48.0) % MCV 86 (80-98) fL MCH 27 (27-31) pg MCHC 31 L (32-36) % Plt Count 206 (150-400) K/uL Neut % (Auto) 78 H (36-66) % Lymph % (Auto) 14 L (24-44) % [place] % (Auto) 8 H (2-6) % Eos % (Auto) 0 L (2-4) % Baso % (Auto) 0 (0-1) % Med Orders - Current: Current Medications Acetaminophen (Tylenol Bulk Bottle) 1 - 2 mg PO Q4H PRN PRN Reason: Pain Last Admin: 10/23/19 11:37 Dose: 1 bottle Amoxicillin/Clavulanate Potassium (Augmentin 875 Mg/125 Mg) 1 tab PO BID DAIANA Diphenhydramine HCl (Benadryl) 25 mg IVPUSH Q6H PRN PRN Reason: Itching Diphenhydramine HCl (Benadryl) 50 mg IVPUSH Q6H PRN PRN Reason: Itching Emollient Ointment (Lansinoh Hpa) 0 gm TOP ASDIRECTED PRN PRN Reason: Pain Last Admin: 10/23/19 20:32 Dose: 1 applic Ephedrine Sulfate (Ephedrine Sulfate) 10 mg IVPUSH ASDIRECTED PRN PRN Reason: Hypotension Lactated Ringer's (Ringers, Lactated) 1,000 mls @ 125 mls/hr IV ASDIRECTED [facility] Last Admin: 10/23/19 03:16 Dose: 125 mls/hr Ropivacaine 200 mg/ Premix 100 mls @ 0 mls/hr EPIDUR ASDIRECTED [facility] Ibuprofen (Motrin Bulk Bottle) 600 mg PO Q6H PRN PRN Reason: Pain Last Admin: 10/23/19 11:37 Dose: 1 bottle Naloxone HCl (Narcan) 0.1 mg IVPUSH ASDIRECTED PRN PRN Reason: Oversedation Ondansetron HCl (Zofran) 4 mg IV Q4H PRN PRN Reason: Nausea/Vomiting Sodium Chloride (Saline Flush) 10 ml FLUSH ASDIRECTED PRN PRN Reason: Keep Vein Open Discontinued Medications Acetaminophen (Tylenol) 650 mg PO Q4H PRN PRN Reason: Fever Last Admin: 10/23/19 05:46 Dose: 650 mg Benzocaine (Etqr-S-Wsfockn 20% [place]) 0 gm TOP ONETIME ONE Stop: 10/23/19 07:41 Last Admin: 10/23/19 11:35 Dose: Not Given Benzocaine (Azyh-D-Mpycupz 20% [place]) 0 gm TOP ONETIME ONE Stop: 10/23/19 12:01 Last Admin: 10/23/19 11:36 Dose: 1 bottle Carboprost Tromethamine (Hemabate Ds) Confirm Administered Dose 250 mcg .ROUTE .STK-MED ONE Stop: 10/23/19 07:19 Last Admin: 10/23/19 08:56 Dose: Not Given Emollient Ointment (Lansinoh Hpa) 1 gm TOP ONETIME ONE Stop: 10/23/19 07:41 Last Admin: 10/23/19 11:35 Dose: Not Given Emollient Ointment (Lansinoh Hpa) 1 gm TOP ONETIME ONE Stop: 10/23/19 12:01 Last Admin: 10/23/19 11:36 Dose: Not Given Ephedrine Sulfate (Ephedrine Sulfate) 10 mg IVPUSH ASDIRECTED PRN PRN Reason: Hypotension Fentanyl (Sublimaze) 100 mcg IVPUSH Q1H PRN PRN Reason: Pain (moderate 4-6) Fentanyl (Sublimaze) Confirm Administered Dose 100 mcg .ROUTE .STK-MED ONE Stop: 10/23/19 01:15 Penicillin G Potassium 5 (millunits/ Sodium Chloride) 50 mls @ 100 mls/hr IV ONETIME ONE Stop: 10/22/19 21:36 Last Admin: 10/22/19 21:21 Dose: 100 mls/hr Sodium Chloride (Normal Saline) Confirm Administered Dose 100 mls @ as directed .ROUTE .STK-MED ONE Stop: 10/22/19 21:11 Last Admin: 10/22/19 21:23 Dose: Not Given Penicillin G Potassium 2.5 (millunits/ Sodium Chloride) 50 mls @ 100 mls/hr IV Q4H DAIANA Last Admin: 10/23/19 04:58 Dose: 100 mls/hr Lactated Ringer's (Ringers, Lactated) 1,000 mls @ 999 mls/hr IV .BOLUS ONE Stop: 10/23/19 01:36 Last Admin: 10/23/19 01:01 Dose: 999 mls/hr Ropivacaine (Naropin 0.2%) Confirm Administered Dose 100 mls @ as directed .ROUTE .ST-MED ONE Stop: 10/23/19 01:15 Oxytocin/Sodium Chloride (Pitocin In Ns 20 Units/1,000 Ml) 20 unit in 1,000 mls @ 6 mls/hr IV TITRATE DAIANA; Protocol Last Admin: 10/23/19 05:48 Dose: 2 munits/min, 6 mls/hr Ceftriaxone Sodium 2 gm/ (Sodium Chloride) 50 mls @ 100 mls/hr IV ONETIME ONE Stop: 10/23/19 09:29 Last Admin: 10/23/19 08:57 Dose: 100 mls/hr Methylergonovine Maleate (Methergine) Confirm Administered Dose 0.2 mg .ROUTE .STK-MED ONE Stop: 10/23/19 07:19 Last Admin: 10/23/19 08:56 Dose: Not Given Misoprostol (Cytotec) 50 mcg PO ONETIME ONE Stop: 10/22/19 21:19 Last Admin: 10/22/19 21:38 Dose: 50 mcg Misoprostol (Cytotec) Confirm Administered Dose 800 mcg .ROUTE .STK-MED ONE Stop: 10/23/19 07:18 Last Admin: 10/23/19 08:56 Dose: Not Given Sodium Chloride (Saline Flush) 10 ml FLUSH ASDIRECTED PRN PRN Reason: Keep Vein Open Terbutaline Sulfate (Brethine) 0.25 mg SUBCUT ONETIME ONE Stop: 10/23/19 02:07 Last Admin: 10/23/19 02:25 Dose: 0.25 mg [place] (Tucks) 1 pad TOP ONETIME ONE Stop: 10/23/19 07:41 Last Admin: 10/23/19 11:35 Dose: Not Given [place] (Tucks) 1 pad TOP ONETIME ONE Stop: 10/23/19 12:01 Last Admin: 10/23/19 11:36 Dose: 1 bottle - Interaction Infant Disposition, : in Room with Family Interaction: Holding Infant Feeding: Breastfed Infant; Nursed Well Support Person: - Recovery Exam Fundal Tone: Firm Fundal Level: At Umbilicus Fundal Placement: Midline Lochia Amount: Moderate Lochia Color: Rubra/Red Perineum Description: Intact, Minimal Bruising/Swelling Episiotomy/Laceration: None Bladder Status: Voiding Urinary Elimination: Voided Other Urinary Elimination, : DTV - Exam General: Alert, Oriented HEENT: Pupils Equal Neck: Supple Lungs: Clear to Auscultation, Normal Respiratory Effort Cardiovascular: Regular Rate, Regular Rhythm GI/Abdominal Exam: Normal Bowel Sounds, Soft, Non-Tender, No Distention, Pelvis Stable Extremities: Normal Inspection, Normal Range of Motion, Non-Tender, No Pedal Edema, Normal Capillary Refill Skin: Warm, Dry, Intact Neurological: No New Focal Deficit Psy/Mental Status: Alert, Normal Affect, Normal Mood - Problem List & Annotations (1) Chorioamnionitis, delivered, current hospitalization SNOMED Code(s): 69813397, 134427396 Code(s): O41.1290 - CHORIOAMNIONITIS, UNSP TRIMESTER, NOT APPLICABLE OR UNSP Status: Acute Current Visit: Yes (2) Elevated WBC count SNOMED Code(s): 363227568, 179880529 Code(s): D72.829 - ELEVATED WHITE BLOOD CELL COUNT, UNSPECIFIED Status: Acute Current Visit: Yes (3) Fever SNOMED Code(s): 851709283 Code(s): R50.9 - FEVER, UNSPECIFIED Status: Acute Current Visit: Yes (4) SNOMED Code(s): 01850454 Code(s): Z34.90 - ENCNTR FOR SUPRVSN OF NORMAL , UNSP, UNSP TRIMESTER Status: Acute Current Visit: Yes Qualifiers: Weeks of gestation: 39 weeks Qualified Code(s): Z3A.39 - 39 weeks gestation of (5) SROM (spontaneous rupture of membranes) SNOMED Code(s): 190090998 Code(s): OHU4530 - Status: Acute Current Visit: Yes (6) Vaginal delivery SNOMED Code(s): 659421247 Code(s): O80 - ENCOUNTER FOR FULL-TERM UNCOMPLICATED DELIVERY Status: Acute Current Visit: Yes - Problem List Review Problem List Initiated/Reviewed/Updated: Yes - My Orders Last 24 Hours: My Active Orders 10/24/19 11:45 Amoxicillin/Clavulanate K [Augmentin 875 MG/125 MG] 1 tab PO BID - Assessment Assessment:: 10/23/2019 24 yo G1 now P1 delivered female Chorioamnionitis suspected Elevated WBC Fever on delivery 10/24/19 PP day 2, no complications is going okay, she is getting sore, has been helping AVSS FF and bleeding light flow Hgb 9.5 WBC 28.2 today, was given one dose IV antibiotics after delivery, change to oral today for suspected chorioamnionitis - Plan Plan:: 10/22/2019 24 yo here at 39 6/7 gestational weeks with SROM at home slow leak at noon then big gush at 1800 so they came in to hospital [id number] Amnisure positive Labs- O positive, Hep B neg, Hep C neg, HIV neg, RPR nonreactive, GBS negative, Rubella nonimmune Plan- Monitor for labor Monitor for FHTs Pain management per patient request Plan and anticipate a vaginal delivery 10/23/2019 Routine cares Encourage and support 10/24/19 Routine pp cares support Anticipate discharge home tomorrow
[2019-10-24] MEDS: Amoxicillin/Clavulanate K 875-125 MG Tab PO SCH ×2 (13:42→20:48)
--- NOTE | 2019-10-25 07:57 | PCM.PNPP ---
- General Info Date of Service: 10/25/19 Functional Status: Reports: Pain Controlled - Review of Systems General: Reports: No Symptoms HEENT: Reports: No Symptoms Pulmonary: Reports: No Symptoms Cardiovascular: Reports: No Symptoms Gastrointestinal: Reports: No Symptoms Genitourinary: Reports: No Symptoms Musculoskeletal: Reports: No Symptoms Skin: Reports: No Symptoms Neurological: Reports: No Symptoms Psychiatric: Reports: No Symptoms - General Info Date of Service: 10/25/19 - Patient Data Vital Signs - Most Recent: Last Vital Signs Temp 36.3 C 10/25/19 04:30 Pulse 85 10/25/19 04:30 Resp 16 10/25/19 04:30 BP 102/58 L 10/25/19 04:30 Pulse Ox 99 10/25/19 04:30 Weight - Most Recent: 71.668 kg I&O - Last 24 Hours: Intake & Output 10/24/19 10/25/19 10/25/19 22:59 06:59 14:59 Intake Total 1360 300 Balance 1360 300 Lab Results - Last 24 Hours: Laboratory Results - last 24 hr 10/25/19 Range/Units 06:00 WBC 26.0 H (4.5-11.0) K/uL RBC 3.74 (3.30-5.50) M/uL Hgb 10.2 L (12.0-15.0) g/dL Hct 32.3 L (36.0-48.0) % MCV 86 (80-98) fL MCH 27 (27-31) pg MCHC 32 (32-36) % Plt Count 249 (150-400) K/uL Neut % (Auto) 79 H (36-66) % Lymph % (Auto) 14 L (24-44) % Clare % (Auto) 7 H (2-6) % Eos % (Auto) 1 L (2-4) % Baso % (Auto) 0 (0-1) % Med Orders - Current: Current Medications Acetaminophen (Tylenol Bulk Bottle) 1 - 2 mg PO Q4H PRN PRN Reason: Pain Last Admin: 10/23/19 11:37 Dose: 1 bottle Amoxicillin/Clavulanate Potassium (Augmentin 875 Mg/125 Mg) 1 tab PO BID DAIANA Last Admin: 10/24/19 20:48 Dose: 1 tab Diphenhydramine HCl (Benadryl) 25 mg IVPUSH Q6H PRN PRN Reason: Itching Diphenhydramine HCl (Benadryl) 50 mg IVPUSH Q6H PRN PRN Reason: Itching Emollient Ointment (Lansinoh Hpa) 0 gm TOP ASDIRECTED PRN PRN Reason: Pain Last Admin: 10/23/19 20:32 Dose: 1 applic Ephedrine Sulfate (Ephedrine Sulfate) 10 mg IVPUSH ASDIRECTED PRN PRN Reason: Hypotension Lactated Ringer's (Ringers, Lactated) 1,000 mls @ 125 mls/hr IV ASDIRECTED DAIANA Last Admin: 10/23/19 03:16 Dose: 125 mls/hr Ropivacaine 200 mg/ Premix 100 mls @ 0 mls/hr EPIDUR ASDIRECTED [facility] Ibuprofen (Motrin Bulk Bottle) 600 mg PO Q6H PRN PRN Reason: Pain Last Admin: 10/23/19 11:37 Dose: 1 bottle Naloxone HCl (Narcan) 0.1 mg IVPUSH ASDIRECTED PRN PRN Reason: Oversedation Ondansetron HCl (Zofran) 4 mg IV Q4H PRN PRN Reason: Nausea/Vomiting Sodium Chloride (Saline Flush) 10 ml FLUSH ASDIRECTED PRN PRN Reason: Keep Vein Open Discontinued Medications Acetaminophen (Tylenol) 650 mg PO Q4H PRN PRN Reason: Fever Last Admin: 10/23/19 05:46 Dose: 650 mg Benzocaine (Jbxl-D-Ewtlskj 20% [place]) 0 gm TOP ONETIME ONE Stop: 10/23/19 07:41 Last Admin: 10/23/19 11:35 Dose: Not Given Benzocaine (Usbq-L-Lggxclr 20% [place]) 0 gm TOP ONETIME ONE Stop: 10/23/19 12:01 Last Admin: 10/23/19 11:36 Dose: 1 bottle Carboprost Tromethamine (Hemabate Ds) Confirm Administered Dose 250 mcg .ROUTE .STK-MED ONE Stop: 10/23/19 07:19 Last Admin: 10/23/19 08:56 Dose: Not Given Emollient Ointment (Lansinoh Hpa) 1 gm TOP ONETIME ONE Stop: 10/23/19 07:41 Last Admin: 10/23/19 11:35 Dose: Not Given Emollient Ointment (Lansinoh Hpa) 1 gm TOP ONETIME ONE Stop: 10/23/19 12:01 Last Admin: 10/23/19 11:36 Dose: Not Given Ephedrine Sulfate (Ephedrine Sulfate) 10 mg IVPUSH ASDIRECTED PRN PRN Reason: Hypotension Fentanyl (Sublimaze) 100 mcg IVPUSH Q1H PRN PRN Reason: Pain (moderate 4-6) Fentanyl (Sublimaze) Confirm Administered Dose 100 mcg .ROUTE .STK-MED ONE Stop: 10/23/19 01:15 Penicillin G Potassium 5 (millunits/ Sodium Chloride) 50 mls @ 100 mls/hr IV ONETIME ONE Stop: 10/22/19 21:36 Last Admin: 10/22/19 21:21 Dose: 100 mls/hr Sodium Chloride (Normal Saline) Confirm Administered Dose 100 mls @ as directed .ROUTE .STK-MED ONE Stop: 10/22/19 21:11 Last Admin: 10/22/19 21:23 Dose: Not Given Penicillin G Potassium 2.5 (millunits/ Sodium Chloride) 50 mls @ 100 mls/hr IV Q4H DAIANA Last Admin: 10/23/19 04:58 Dose: 100 mls/hr Lactated Ringer's (Ringers, Lactated) 1,000 mls @ 999 mls/hr IV .BOLUS ONE Stop: 10/23/19 01:36 Last Admin: 10/23/19 01:01 Dose: 999 mls/hr Ropivacaine (Naropin 0.2%) Confirm Administered Dose 100 mls @ as directed .ROUTE .STK-MED ONE Stop: 10/23/19 01:15 Oxytocin/Sodium Chloride (Pitocin In Ns 20 Units/1,000 Ml) 20 unit in 1,000 mls @ 6 mls/hr IV TITRATE DAIANA; Protocol Last Admin: 10/23/19 05:48 Dose: 2 munits/min, 6 mls/hr Ceftriaxone Sodium 2 gm/ (Sodium Chloride) 50 mls @ 100 mls/hr IV ONETIME ONE Stop: 10/23/19 09:29 Last Admin: 10/23/19 08:57 Dose: 100 mls/hr Methylergonovine Maleate (Methergine) Confirm Administered Dose 0.2 mg .ROUTE .STK-MED ONE Stop: 10/23/19 07:19 Last Admin: 10/23/19 08:56 Dose: Not Given Misoprostol (Cytotec) 50 mcg PO ONETIME ONE Stop: 10/22/19 21:19 Last Admin: 10/22/19 21:38 Dose: 50 mcg Misoprostol (Cytotec) Confirm Administered Dose 800 mcg .ROUTE .STK-MED ONE Stop: 10/23/19 07:18 Last Admin: 10/23/19 08:56 Dose: Not Given Sodium Chloride (Saline Flush) 10 ml FLUSH ASDIRECTED PRN PRN Reason: Keep Vein Open Terbutaline Sulfate (Brethine) 0.25 mg SUBCUT ONETIME ONE Stop: 10/23/19 02:07 Last Admin: 10/23/19 02:25 Dose: 0.25 mg [place] (Tucks) 1 pad TOP ONETIME ONE Stop: 10/23/19 07:41 Last Admin: 10/23/19 11:35 Dose: Not Given [place] (Tucks) 1 pad TOP ONETIME ONE Stop: 10/23/19 12:01 Last Admin: 10/23/19 11:36 Dose: 1 bottle - Infant Interaction Infant Disposition, : in Room with Family Infant Interaction: Holding Infant Feeding: Breastfed Infant; Nursed Well Support Person: - Recovery Exam Fundal Tone: Firm Fundal Level: At Umbilicus Fundal Placement: Midline Lochia Amount: Small Lochia Color: Rubra/Red Perineum Description: Intact, Minimal Bruising/Swelling Episiotomy/Laceration: None Bladder Status: Voiding Urinary Elimination: Voided Other Urinary Elimination, : DTV - Exam General: Alert, Oriented, Cooperative HEENT: Pupils Equal Neck: Supple Lungs: Clear to Auscultation, Normal Respiratory Effort Cardiovascular: Regular Rate, Regular Rhythm GI/Abdominal Exam: Normal Bowel Sounds, Soft, Non-Tender, No Organomegaly, No Distention, No Abnormal Bruit, No Mass, Pelvis Stable Extremities: Normal Inspection, Normal Range of Motion, Non-Tender, No Pedal Edema, Normal Capillary Refill Skin: Warm, Dry, Intact Neurological: No New Focal Deficit Psy/Mental Status: Alert, Normal Affect, Normal Mood - Problem List & Annotations (1) SNOMED Code(s): 12522273 Code(s): Z34.90 - ENCNTR FOR SUPRVSN OF NORMAL , UNSP, UNSP TRIMESTER Status: Acute Current Visit: Yes Qualifiers: Weeks of gestation: 39 weeks Qualified Code(s): Z3A.39 - 39 weeks gestation of (2) SROM (spontaneous rupture of membranes) SNOMED Code(s): 886921072 Code(s): KPR1218 - Status: Acute Current Visit: Yes (3) First stage of labor established SNOMED Code(s): 017290421 Code(s): [id number] - Status: Acute Current Visit: Yes - Problem List Review Problem List Initiated/Reviewed/Updated: Yes - Assessment Assessment:: 10/23/2019 24 yo G1 now P1 delivered female infant Chorioamnionitis suspected Elevated WBC Fever on delivery 10/24/19 PP day 1, no complications is going okay, she is getting sore, has been helping AVSS FF and bleeding light flow Hgb 9.5 WBC 28.2 today, was given one dose IV antibiotics after delivery, change to oral today for suspected chorioamnionitis 10/25/2019 PP day 2, -suspected chorioamnionitis is going okay, she is getting sore, has been helping patient is pumping Vital stable Fundus Firm and bleeding decreasing Voiding and passing gas WBC 26.0 today, was given one dose IV antibiotics after delivery, change to oral today for suspected chorioamnionitis - Plan Plan:: 10/22/2019 24 yo here at 39 6/7 gestational weeks with SROM at home slow leak at noon then big gush at 1800 so they came in to hospital SVE-/-1 Amnisure positive Labs- O positive, Hep B neg, Hep C neg, HIV neg, RPR nonreactive, GBS negative, Rubella nonimmune Plan- Monitor for labor Monitor for FHTs Pain management per patient request Plan and anticipate a vaginal delivery 10/23/2019 Routine cares Encourage and support 10/24/19 Routine pp cares support Anticipate discharge home tomorrow 10/25/19 Continue routine cares Continue to support and encourage Discharge home today Would like her to see provider in clinic on Wednesday for suspected chorioamnionitis
[2019-10-25] MEDS: Amoxicillin/Clavulanate K 875-125 MG Tab PO SCH (11:53)
== END 2019-10-25 14:30 | disposition home or self-care (01) | DRG 807 ==
LOC: JP.OBCHECK 18:48 → JP.OB 18:49 → OBSVTOIN 10-23 07:16 → JP.MS 10-23 07:30
PROVIDERS: ADMIT Advanced Practice Midwife; ATTEND Advanced Practice Midwife
PROC: 10E0XZZ Delivery of Products of Conception, External Approach (ICD-10-PCS; principal; 2019-10-23)
PROC: 3E0R3BZ Introduction of Anesthetic Agent into Spinal Canal, Percutaneous Approach (ICD-10-PCS; 2019-10-23)
PROC: 00HU33Z Insertion of Infusion Device into Spinal Canal, Percutaneous Approach (ICD-10-PCS; 2019-10-23)
DX: O41.1230 Chorioamnionitis, third trimester, not applicable or unspecified (principal); Z37.0 Single live birth; Z3A.39 39 weeks gestation of pregnancy
CPT/HCPCS: 36415; 51702; 59409; 80305-QW; 81001; 84112; 85025; 99211; A9270-GY; J0696; J2540; J2590; J2795; J3010; J3105; J7050; J7120